=== PATIENT | male | born 1995 | race Caucasian/White ===

== ENCOUNTER → 2016-06-06 | Outpatient (CLI) | payer BC ==
[~2016-06-06] MED LIST: CEPH500C PO; CITA10TA4 PO; INSU100I14 SQ; LANTUS SOL100 UNIT/1 SC
--- NOTE | 2016-06-06 16:39 | Diagnostic Imaging Report ---
Indication: Low back pain. History of spinal fracture at L3 No prior studies are available for comparison. 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 There is normal height and alignment of the other levels. Disc spaces are well-maintained. No bony canal encroachment is seen. There is no acute abnormality. 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 No acute abnormality is seen. Dictated by: Dictated on workstation # [id number]
== END ==
LOC: RAD 15:25
PROVIDERS: ATTEND Chiropractor
DX: M54.5 Low back pain (principal); S32.030D Wedge compression fracture of third lumbar vertebra, subsequent encounter for fracture with routine healing; X58.XXXD Exposure to other specified factors, subsequent encounter
CPT/HCPCS: 72110